=== PATIENT | male | born 1995 | race American Indian/Alaskan Native ===

== ENCOUNTER 2018-07-23 18:24 | Emergency (ER) | payer MEDICAID, OTHER ==
[2018-07-23 19:35] VITALS: BP 109/77
--- NOTE | 2018-07-23 20:08 | Emergency Department Report ---
Blank Doc - Documentation Documentation: This is a 23-year-old male that presents with right ankle pain after twisting it. This initial assessment/diagnostic orders/clinical plan/treatment(s) is/are subject to change based on patient's health status, clinical progression and re- assessment by fellow clinical providers in the ED. Further treatment and workup at subsequent clinical providers discretion. Patient/guardians urged not to elope from the ED as their condition may be serious if not clinically assessed and managed. Initial orders include: 1- Patient sent to [facility] for further evaluation and treatment 2- xray
--- NOTE | 2018-07-23 22:31 | XRay Report ---
PROCEDURE: XR ANKLE 3+V RT HISTORY: right ankle pain FINDINGS: AP, lateral and mortise views of the right ankle were acquired and demonstrate no fracture or malalignment of the right ankle. There is mild lateral soft tissue swelling. IMPRESSION: No fracture is seen in the right ankle This document is electronically signed by Casey Guzman MD., July 23 2018 10:29:19 PM ET
[2018-07-23] MEDS ORDERED: NORCO 5/325 PO ONE (22:33)
--- NOTE | 2018-07-23 23:02 | Emergency Department Report ---
ED Lower Extremity HPI - General Chief Complaint: Extremity Injury, Lower Stated Complaint: RT ANKLE INJURY/PAIN Time Seen by Provider: 07/23/18 20:05 Source: patient Mode of arrival: Ambulatory Limitations: No Limitations - History of Present Illness Initial Comments: This is a 23-year-old male that presents with right ankle pain after twisting it. Complaint: ankle injury Onset/Timin -: days(s) Injury: Ankle: Right (right lateral pain swelling ) Type of Injury: eversion Place: home Severity: moderate Severity scale (0 -10): 5 Improves With: nothing Worsens With: weight bearing, movement, palpation Context: fall Associated Symptoms: swelling, tingling, able to partially bear weight - Related Data Home Medications Medication Instructions Recorded Confirmed Last Taken Benztropine [Cogentin] 1 mg PO QHS 04/12/15 04/12/15 1 Day Ago ~04/11/[address] [DepaKOTE DR] 500 mg PO BID 04/12/15 04/12/15 1 Day Ago ~04/11/15 Previous Rx's Medication Instructions Recorded Last Taken Type Cyclobenzaprine [Flexeril] 10 mg PO TID PRN #30 tablet 07/23/18 Unknown Rx Naproxen 500 mg PO BID PRN #30 tablet 07/23/18 Unknown Rx Allergies Allergy/AdvReac Type Severity Reaction Status Date / Time No Known Allergies Allergy Verified 04/08/14 00:11 ED Review of Systems ROS: Stated complaint: RT ANKLE INJURY/PAIN Other details as noted in HPI Constitutional: denies: chills, fever Eyes: denies: eye pain, eye discharge, vision change ENT: denies: ear pain, throat pain Respiratory: denies: cough, shortness of breath, wheezing Cardiovascular: denies: chest pain, palpitations Endocrine: no symptoms reported Gastrointestinal: denies: abdominal pain, nausea, diarrhea Genitourinary: denies: urgency, dysuria Musculoskeletal: joint swelling (right ankle pain swelling ) Skin: denies: rash, lesions Neurological: denies: headache, weakness, paresthesias Psychiatric: denies: anxiety, depression Hematological/Lymphatic: denies: easy bleeding, easy bruising ED Past Medical Hx - Past Medical History Hx Psychiatric Treatment: Yes (depression, schizophrenic, suicide attempts, self mutilating.) - Surgical History Past Surgical History?: No - Social History Smoking Status: Current Every Day Smoker Substance Use Type: Alcohol, Marijuana - Medications Home Medications: Home Medications Medication Instructions Recorded Confirmed Last Taken Type Benztropine [Cogentin] 1 mg PO QHS 04/12/15 04/12/15 1 Day Ago History ~04/11/[address] [DepaKOTE DR] 500 mg PO BID 04/12/15 04/12/15 1 Day Ago History ~04/11/15 Cyclobenzaprine [Flexeril] 10 mg PO TID PRN #30 tablet 07/23/18 Unknown Rx Naproxen 500 mg PO BID PRN #30 tablet 07/23/18 Unknown Rx ED Physical Exam - General Limitations: No Limitations General appearance: alert, in no apparent distress - Head Head exam: Present: atraumatic, normocephalic - Eye Eye exam: Present: normal appearance, PERRL, EOMI Pupils: Present: normal accommodation - ENT ENT exam: Present: mucous membranes moist - Neck Neck exam: Present: normal inspection, full ROM. Absent: tenderness - Respiratory Respiratory exam: Present: normal lung sounds bilaterally. Absent: respiratory distress, wheezes, stridor, chest wall tenderness - Cardiovascular Cardiovascular Exam: Present: regular rate, normal rhythm, normal heart sounds. Absent: systolic murmur, diastolic murmur, rubs, gallop - GI/Abdominal GI/Abdominal exam: Present: soft, normal bowel sounds. Absent: tenderness, bruit, hernia - Rectal Rectal exam: Present: deferred - Extremities Exam Extremities exam: Present: normal inspection, full ROM, tenderness (right lateral ankle ), normal capillary refill, pedal edema, joint swelling. Absent: calf tenderness - Expanded Lower Extremity Exam Right Ankle exam: Present: tenderness, swelling. Absent: abrasion, laceration, ecchymosis, deformity, crepidus, dislocation, erythema, anterior draw sign Foot/Toe exam: Present: full ROM, tenderness (right lateral foot okay was after 46 size). Absent: swelling, abrasion, ecchymosis, deformity (neurovascular), crepidus, calcaneal tenderness, tenderness at base of 5th metatarsal Neuro vascular tendon exam: Present: no vascular compromise. Absent: pulse deficit, motor deficit, sensory deficit, tendon deficit Gait: Positive: observed and limited by pain - Back Exam Back exam: Present: normal inspection, full ROM. Absent: tenderness, CVA tenderness (R), CVA tenderness (L), muscle spasm, vertebral tenderness, rash noted - Neurological Exam Neurological exam: Present: alert, oriented X3, CN II-XII intact, abnormal gait (limp . Date is releasedright ankle ), reflexes normal - Psychiatric Psychiatric exam: Present: normal affect ( tachycardia probably due to), normal mood - Skin Skin exam: Present: warm, dry, intact, normal color. Absent: rash ED Course Vital Signs 07/23/18 07/23/18 19:34 20:08 Temperature 97.7 F 97.7 F Pulse Rate 87 84 Respiratory 18 18 Rate Blood Pressure 109/77 109/77 O2 Sat by Pulse 99 99 Oximetry ED Lower Extremity MDM - Radiology Data Radiology results: report reviewed, image reviewed Ordering Physician: OPAL RUSSELL NP Date of Service: 07/23/18 Procedure(s): XR ankle 3+V RT Accession Number(s): [id number] cc: OPAL RUSSELL NP Fluoro Time In Minutes: PROCEDURE: XR ANKLE 3+V RT HISTORY: right ankle pain FINDINGS: AP, lateral and mortise views of the right ankle were acquired and demonstrate no fracture or malalignment of the right ankle. There is mild lateral soft tissue swelling. 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 Critical care attestation.: If time is entered above; I have spent that time in minutes in the direct care of this critically ill patient, excluding procedure time. ED Disposition Clinical Impression: Ankle sprain Qualifiers: Encounter type: initial encounter Involved ligament of ankle: other ligament Laterality: right Qualified Code(s): S93.491A - Sprain of other ligament of right ankle, initial encounter Disposition: TO HOME OR SELFCARE Is pt being admited?: No Does the pt Need Aspirin: No Condition: Stable Instructions: Ankle Sprain (ED), Ankle Stirrup Splint (ED), Ankle Exercises (GEN), RICE Therapy (ED) Prescriptions: Cyclobenzaprine [Flexeril] 10 mg PO TID PRN #30 tablet PRN Reason: Muscle Spasm Naproxen 500 mg PO BID PRN #30 tablet PRN Reason: pain Referrals: MALIA HIDALGO MD [Staff Physician] - 3-5 Days Forms: Work/School Release Form(ED) Time of Disposition: 23:13
== END 2018-07-23 23:15 | disposition home or self-care (01) ==
LOC: ED 18:24
DX: S93.491A Sprain of other ligament of right ankle, initial encounter (principal); F32.9 Major depressive disorder, single episode, unspecified; F17.200 Nicotine dependence, unspecified, uncomplicated; F12.10 Cannabis abuse, uncomplicated; W01.0XXA Fall on same level from slipping, tripping and stumbling without subsequent striking against object, initial encounter; Y93.89 Activity, other specified; Y92.89 Other specified places as the place of occurrence of the external cause; Y99.8 Other external cause status

== ENCOUNTER 2019-12-31 16:37 | Emergency (ER) | payer SELFPAY ==
[2019-12-31 17:05] VITALS: BP 140/96
[2019-12-31] MEDS ORDERED: oxyCODONE /ACETAMINOPHEN 5-325MG TAB PO ONE (19:17)
--- NOTE | 2019-12-31 19:34 | Emergency Department Report ---
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 complaining of back pain after having a accident falling on the fence hitting his back while jumping off of a building Complaint: back pain, back injury, fall -: Sudden, days(s) (1) Place: street Quality: dull, aching Consistency: constant Improves With: none Worsens With: movement Context: fall Associated Symptoms: denies: chest pain, numbness, difficulty walking, difficulty urinating, incontinence, fever/chills, constipation, headaches - Related Data Home Medications Medication Instructions Recorded Confirmed Last Taken Benztropine [Cogentin] 1 mg PO QHS 04/12/15 04/12/15 1 Day Ago ~04/11/15 Divalproex [Allison DOWNEY] 500 mg PO BID 04/12/15 04/12/15 1 Day Ago ~04/11/15 Previous Rx's Medication Instructions Recorded Last Taken Type Cyclobenzaprine [Flexeril] 10 mg PO TID PRN #30 tablet 07/23/18 Unknown Rx Naproxen 500 mg PO BID PRN #30 tablet 07/23/18 Unknown Rx traMADoL [Ultram] 50 mg PO Q6HR PRN #14 tablet 12/31/19 Unknown Rx Allergies Allergy/AdvReac Type Severity Reaction Status Date / Time No Known Allergies Allergy Verified 04/08/14 00:11 ED Review of Systems ROS: Stated complaint: BACK PAIN Other details as noted in HPI Comment: All other systems reviewed and negative ED Past Medical Hx - Past Medical History Previous Medical History?: No Hx Psychiatric Treatment: Yes (depression, schizophrenic, suicide attempts, self mutilating.) - Surgical History Past Surgical History?: No - Social History Smoking Status: Current Every Day Smoker - Medications Home Medications: Home Medications Medication Instructions Recorded Confirmed Last Taken Type Benztropine [Cogentin] 1 mg PO QHS 04/12/15 04/12/15 1 Day Ago History ~04/11/15 Divalproex [Allison DOWNEY] 500 mg PO BID 04/12/15 04/12/15 1 Day Ago History ~04/11/15 Cyclobenzaprine [Flexeril] 10 mg PO TID PRN #30 tablet 07/23/18 Unknown Rx Naproxen 500 mg PO BID PRN #30 tablet 07/23/18 Unknown Rx traMADoL [Ultram] 50 mg PO Q6HR PRN #14 tablet 12/31/19 Unknown Rx ED Physical Exam - General Limitations: No Limitations General appearance: alert, in no apparent distress - Head Head exam: Present: atraumatic, normocephalic - Eye Eye exam: Present: normal appearance, PERRL - ENT ENT exam: Present: mucous membranes moist - Neck Neck exam: Present: normal inspection - Respiratory Respiratory exam: Present: normal lung sounds bilaterally. Absent: respiratory distress - Cardiovascular Cardiovascular Exam: Present: regular rate, normal rhythm. Absent: systolic murmur, diastolic murmur, rubs, gallop - GI/Abdominal GI/Abdominal exam: Present: soft, normal bowel sounds - Rectal Rectal exam: Present: deferred - Extremities Exam Extremities exam: Present: normal inspection - Back Exam Back exam: Present: normal inspection, tenderness, muscle spasm, vertebral tenderness. Absent: CVA tenderness (R), CVA tenderness (L) - Neurological Exam Neurological exam: Present: alert, oriented X3, CN II-XII intact, normal gait - Psychiatric Psychiatric exam: Present: normal affect, normal mood - Skin Skin exam: Present: warm, dry, intact, normal color. Absent: rash ED Course Vital Signs 12/31/19 17:03 Temperature 98.1 F Pulse Rate 68 Respiratory 14 Rate Blood Pressure 140/96 O2 Sat by Pulse 100 Oximetry ED Medical Decision Making - Radiology Data Radiology results: report reviewed Referring Physician:DORIS CHRISTIANPatient Name:REMBERTO GERARDOPatient ID:[id number] of :[id number]:MaleAccession:[id number] Date:[id number] Status:Finalized Findings [address] [address] XRay Report Signed Patient: REMBERTO GERARDO MR#: [id number] : 1995 Acct:[id number] Age/Sex: 24 / M ADM Date: 12/31/19 Loc: ED Attending Dr: Ordering Physician: URI WARD Date of Service: 12/31/19 Procedure(s): XR spine lumbosacral 2-3V Accession Number(s): [id number] cc: URI WARD Fluoro Time In Minutes: XR spine lumbosacral 2-3V HISTORY: Back pain COMPARISON: None. TECHNIQUE: 2 view(s) of the lumbar spine obtained. FINDINGS: Vertebrae: Normal alignment. Mild anterior wedging of T12 and L1. Otherwise vertebral body heights preserved. No acute appearing loss of vertebral body height. Spondylosis:Disc space heights are preserved. IMPRESSION: 1. No significant abnormality of the lumbar spine. Signer Name: Cale Posada MD Signed: 12/31/2019 8:21 PM Workstation Name: [id number] Transcribed By: LARON Dictated By: Cale Posada MD Electronically Authenticated By: Cale Posada MD Signed Date/Time: 12/31/192020 DD/ 16 TD/TT: - Medical Decision Making Pt presents the emergency department complaining of back pain most consistent with lumbar contusion back Pain Most Consistent with Strain/Contusion. Differential Diagnosis Includes Lumbar Go Versus Musculoskeletal Spasm, Strain Versus Sciatica. No Back Pain Red Flags on History or Physical. Presentation Not Consistent with Malignancy, Fracture, Cauda Equina, Abdominal Aortic Aneurysm, Viscus Perforation, Pulmonary Embolism, Renal Colic, Pyelonephritis. Patient reports no B symptoms, trauma trauma, incontinence, saddle anesthesia, distal weakness, urinary symptoms and is a febrile. Critical care attestation.: If time is entered above; I have spent that time in minutes in the direct care of this critically ill patient, excluding procedure time. ED Disposition Clinical Impression: Contusion of lower back Disposition: DC-01 TO HOME OR SELFCARE Is pt being admited?: No Does the pt Need Aspirin: No Condition: Stable Instructions: Acute Low Back Pain (ED), Ice Pack Application (ED) Prescriptions: traMADoL [Ultram] 50 mg PO Q6HR PRN #14 tablet PRN Reason: Pain Referrals: PRIMARY MD NOELLE [Primary Care Provider] - 3-5 Days [facility] [Provider Group] - 3-5 Days WASHINGTON JARRETT MD [Staff Physician] - 3-5 Days
--- NOTE | 2019-12-31 20:25 | XRay Report ---
XR spine lumbosacral 2-3V HISTORY: Back pain COMPARISON: None. TECHNIQUE: 2 view(s) of the lumbar spine obtained. FINDINGS: Vertebrae: Normal alignment. Mild anterior wedging of T12 and L1. Otherwise vertebral body heights preserved. No acute appearing loss of vertebral body height. Spondylosis:Disc space heights are preserved. IMPRESSION: 1. No significant abnormality of the lumbar spine. Signer Name: Cale Posada MD Signed: 12/31/2019 8:21 PM Workstation Name: [id number]
== END 2019-12-31 21:25 | disposition home or self-care (01) ==
LOC: ED 16:37
DX: S30.0XXA Contusion of lower back and pelvis, initial encounter (principal); F20.9 Schizophrenia, unspecified; F32.9 Major depressive disorder, single episode, unspecified; F17.200 Nicotine dependence, unspecified, uncomplicated; Z79.899 Other long term (current) drug therapy; W18.30XA Fall on same level, unspecified, initial encounter; Y93.89 Activity, other specified; Y92.89 Other specified places as the place of occurrence of the external cause; Y99.8 Other external cause status
CPT/HCPCS: 72100; 99283

== ENCOUNTER 2021-11-24 20:28 | Emergency (ER) | payer SELFPAY ==
[2021-11-24 21:53] VITALS: BP 118/86
== END 2021-11-25 04:52 | disposition left against medical advice (07) ==
LOC: ED 20:28
DX: M54.50 Low back pain, unspecified (principal); Z53.21 Procedure and treatment not carried out due to patient leaving prior to being seen by health care provider